=== PATIENT | male | born 1935 | race Caucasian/White ===

== ENCOUNTER 2017-04-02 16:46 | Inpatient (IN) ==
[2017-04-02 17:24] LABS: MANUAL DIFF NEEDED? NO
[2017-04-02 17:37] LABS: BASO% 0.6 % (0.0-0.8); EOS# 0.14 X1000 (0.0-0.7); EOS% 1.3 % (0.0-10.0); HEMATOCRIT 48.7 % (42.0-52.0); HEMOGLOBIN 16.5 g/dL (14.0-18.0); IMM GRAN# 0.02 X1000 (0.0-0.04); IMM GRAN% 0.2 % (0.0-0.5); LYMPH# 1.28 X1000 (1.2-3.4); LYMPH% 12.1 % (20.5-51.1); MCH 32.1 PG (27-31); MCHC 33.9 g/dL (33-37); MCV 94.7 FL (81-99); MONO% 7.6 % (1.7-9.3); MPV 11.4 FL (7.4-10.4); NEUT% 78.2 % (42.2-75.2); PLT 177 X1000 (130-400); RBC 5.14 XMIL (4.7-6.1)
[2017-04-02 17:52] LABS: ALBUMIN 4.1 g/dL (3.5-5.0); CALCIUM 9.5 mg/dL (8.8-10.2); POTASSIUM 4.1 mmol/L (3.5-5.1); TOTAL BILIRUBIN 0.72 mg/dL (0.20-1.00)
[2017-04-02 18:06] LABS: URINE MICRO REVIEW NEEDED? NO; URINE SOURCE CLEAN CATCH
[2017-04-02 18:11] LABS: BILIRUBIN URINE NEGATIVE (NEGATIVE); BLOOD URINE TRACE (NEGATIVE); COLOR STRAW; GLUCOSE URINE 500 mg/dL (NEGATIVE); LEUKOCYTES URINE TRACE (NEGATIVE); NITRITE URINE NEGATIVE (NEGATIVE); PH URINE 7.5; PROTEIN URINE 50 mg/dL (NEGATIVE); SP GRAVITY URINE 1.007; TURBIDITY URINE CLEAR (CLEAR); UR EPITHELIAL CELLS <10 /HPF (<10); URINE BACTERIA NEGATIVE /HPF; URINE CULTURE NEEDED? YES; URINE RBC <10 /HPF (<10); UROBILINOGEN URINE NORMAL (NORMAL)
[2017-04-02] MEDS ORDERED: ZOFRAN IV ONE (18:28)
[2017-04-02] MEDS ORDERED: ROCEPHIN 1 GM/NS 1 GM/50 ML IVPB IV ONE (18:29)
[2017-04-02] MEDS ORDERED: LOPRESSOR 10 MG in NS 50 ML IV ONE (18:30)
[2017-04-02] MEDS ORDERED: NS 1,000 ML IV ONE (18:30)
[2017-04-02] MEDS ORDERED: NICODERM PATCH TD ONE (18:49)
--- NOTE | 2017-04-02 18:51 | PROVIDER DOCUMENTATION ---
This chart was entered by Camille Seymour Scribe, acting as scribe for Will Landaverde MD. HPI-Abdominal Pain/GI Problem - General Chief Complaint: Nausea/Vomiting Stated Complaint: N/V Time Seen by Provider: 04/02/17 18:27 Source: family Allergies/Adverse Reactions: Patient Allergies Allergy/AdvReac Type Severity Reaction Status Date / Time Sulfa (Sulfonamide Allergy Intermediate RASH Verified 04/01/17 18:16 Antibiotics) Home Medications: Home Medication List Medication Instructions Recorded Confirmed Last Taken Type Aspirin 162 mg PO DAILY 11/26/13 04/02/17 04/02/17 History Carvedilol 3.125 mg PO BID 11/26/13 04/02/17 04/02/17 History Cyanocobalamin (Vitamin B-12) 500 mcg PO BID 11/26/13 04/02/17 04/02/17 History [Vitamin B-12] Glipizide 10 mg PO BID 11/26/13 04/02/17 04/02/17 History Tamsulosin HCl [Flomax] 0.4 mg PO DAILY 11/26/13 04/02/17 04/02/17 History Apixaban [Eliquis] 2.5 mg PO BID 04/01/17 04/02/17 04/02/17 History Atorvastatin Calcium 80 mg PO HS 04/01/17 04/02/17 04/02/17 History Calcium Carbonate [Calcium] 500 mg PO BID 04/01/17 04/02/17 04/02/17 History Cholecalciferol (Vitamin D3) 1,000 unit PO DAILY 04/01/17 04/02/17 04/02/17 History [Vitamin D3] Finasteride 5 mg PO DAILY 04/01/17 04/02/17 04/02/17 History Insulin Detemir [Levemir] 10 unit SQ 04/01/17 04/02/17 04/02/17 History Losartan Potassium 25 mg PO DAILY 04/01/17 04/02/17 04/02/17 History Omeprazole 20 mg PO BID 04/01/17 04/02/17 04/02/17 History - History of Present Illness-ABD Nature of Presenting Problems: 81 year old M presents to the Ed with a cc of nausea, vomiting, and diarrhea with an onset of 1400. Family states that pt was seen yesterday in the ED for a syncopal episode. PT left AMA after having labs and imaging and 1/2 a bag of fluids. Daughter called PCP today and was told that they did not have appointment for pt and if it got any worse to come to the ED. Abdominal Pain Onset Location: reports: generalized abdomen Pain Radiation: reports: no radiation Quality of Pain: reports: aching Severity in ED: reports: mild Onset/Duration: reports: this afternoon (1400) Timing: reports: still present Associated Symptoms: reports: diarrhea, nausea, vomiting Bruising or Bleeding Gums?: No Similar Symptoms Previously?: No Recently seen or treated by another doctor?: Yes Review of Systems - Adult - REVIEW OF SYSTEMS - ADULT Constitutional: denies: chills, fever Eyes: reports: no symptoms reported Ears, Nose, Mouth & Throat: reports: no symptoms reported Cardiovascular: denies: chest pain, palpitations Respiratory: denies: cough, shortness of breath Gastrointestinal: reports: diarrhea, nausea, vomiting Genitourinary: reports: no symptoms reported Musculoskeletal: reports: no symptoms reported Integumentary: reports: no symptoms reported Neurological: reports: no symptoms reported Psychiatric: reports: no symptoms reported Endocrine: reports: no symptoms reported Hematologic/Lymphatic: reports: no symptoms reported Allergic/Immunologic: reports: no symptoms reported All Other Systems: Reviewed and Negative Past History - Adult - PAST MEDICAL HISTORY-ADULT Review of Records: reports: Nursing Assessment Review, Medications Reviewed Major Childhood Illnesses: reports: denies history Cardiovascular: reports: arrhythmia, HTN, hyperlipidemia, pacemaker Genitourinary: reports: kidney stones Neurological: reports: dementia Endocrine/Immune: reports: Diabetes - PRIOR SURGERIES/PROCEDURES Surgical/Procedure History: reports: pacemaker, back/neck - IMMUNIZATION STATUS Childhood Immunizations: See Nurse Assessment Flu Vaccine: See Nurse Assessment - SOCIAL HISTORY Smoking: cigarettes Provider spent 3-5 mins advising pt. on dangers of tobacco.: Discussed manners to quit use, and f/u contacts for add'l counseling. Substance Use: none/never Alcohol Use Frequency: rarely Physical Exam-General - PHYSICAL EXAM-ADULT Initial Vital Signs Reviewed: Yes - CONSTITUTIONAL General Appearance: alert, no apparent distress - RESPIRATORY Respiratory: chest non-tender, lungs clear, normal breath sounds - CARDIOVASCULAR Cardiovascular: normal peripheral pulses, regular rate, rhythm, no edema - GASTROINTESTINAL (ABDOMEN) Abdominal Exam: normal bowel sounds, soft, tenderness (suprapubic) - MUSCULOSKELETAL Back Exam: normal inspection, no CVA tenderness, no vertebral tenderness Extremity: normal inspection - SKIN Integumentary: normal color, normal turgor, warm/dry - PSYCHIATRIC Psych/Mental Status: normal mood/affect, normal thought content, normal thought process, oriented x 3 Progress - PLAN OF CARE/RESULTS Progress/Plan/Lab Results: Vital Signs - 8 hr 04/02/17 16:56 Temperature 97.4 F L Pulse Rate 69 Respiratory Rate 18 Blood Pressure 191/110 O2 Sat by Pulse Oximetry 96 Laboratory Results - last 24 hr 04/02/17 04/02/17 04/02/17 16:58 16:58 17:15 WBC 10.56 RBC 5.14 Hgb 16.5 Hct 48.7 MCV 94.7 MCH 32.1 H MCHC 33.9 RDW Std Deviation 13.7 Plt Count 177 MPV 11.4 H Immature Gran % (Auto) 0.2 Neut % (Auto) 78.2 H Lymph % (Auto) 12.1 L [place] % (Auto) 7.6 Eos % (Auto) 1.3 Baso % (Auto) 0.6 Immature Gran # (Auto) 0.02 Neut # (Auto) 8.26 H Lymph # (Auto) 1.28 [place] # (Auto) 0.80 H Eos # (Auto) 0.14 Baso # (Auto) 0.06 Sodium 133 L Potassium 4.1 D Chloride 97 L Carbon Dioxide 20 L Anion Gap 16 BUN 22 Creatinine 1.3 H Estimated GFR/1.73 m2 53 BUN/Creatinine Ratio 17 Glucose 187 H Calculated Osmolality 275 Calcium 9.5 Total Bilirubin 0.72 AST 15 ALT 9 L Alkaline Phosphatase 200 H Total Protein 8.0 Albumin 4.1 Globulin 3.9 Albumin/Globulin Ratio 1.1 Urine Source CLEAN CATCH Urine Color STRAW Urine Turbidity CLEAR Urine pH 7.5 Ur Specific [place] 1.007 Urine Protein 50 A Ur Glucose (Stick) 500 A Ur Ketones (Stick) TRACE A Urine Blood TRACE A Urine Nitrite NEGATIVE Urine Bilirubin NEGATIVE Urobilinogen Dipstick NORMAL Urine Leukocytes TRACE A Urine WBC (Auto) 10-20 A Urine RBC (Auto) <10 U Epithel Cells (Auto) <10 Urine Bacteria (Auto) NEGATIVE Orders Category Date Time Status CBC WITH ELECTRONIC DIFF [HEME] Stat Lab 04/02/17 16:58 Completed CMP [COMPREHENSIVE METABOLIC PANEL] [CHEM] Stat Lab 04/02/17 16:58 Completed UA NIMS W/REFLEX CULT [URINALYSIS] Stat Lab 04/02/17 17:15 Completed URINE CULTURE [RM] Routine Lab 04/02/17 18:22 Received Result Diagrams: 04/02/17 16:58 04/02/17 16:58 Departure - Departure Date of Disposition Decision: 04/02/17 Time of Disposition Decision: 18:50 DIAGNOSIS: UTI (urinary tract infection) Qualifiers: Urinary tract infection type: site unspecified Hematuria presence: without hematuria Qualified Code(s): N39.0 - Urinary tract infection, site not specified Vomiting Qualifiers: Vomiting type: unspecified Vomiting Intractability: non-intractable Nausea presence: with nausea Qualified Code(s): R11.2 - Nausea with vomiting, unspecified Disposition: ADMITTED INPATIENT 09 Certified Medical Emergency: Emergent Condition: Fair - Critical Care Note This patient required my direct & personal management of CC.: No This chart was documented by the indicated scribe, (Camille Seymour Scribe) and accurately reflects the services I performed and decisions made by me, Will Landaverde MD, as attested by the provider's signature.
--- NOTE | 2017-04-02 19:18 | Diag Imaging Result Doc PS360 ---
EXAM: FLAT/UPRIGHT ABD/1 VIEW CHEST HISTORY: vomiting TECHNIQUE: Four views COMPARISON: 02/16/2014 FINDINGS: The lungs are well expanded. There is a left-sided pacemaker. No cardiomegaly. No pneumonia. No free air beneath the diaphragm. The gallbladder has been removed. No bowel obstruction. No organomegaly. There is a left lower pole renal stone. This was present on the prior exam. IMPRESSION: No acute abnormality. Electronically signed by Osiel Butts 04/02/2017 7:16 PM
[2017-04-02] MEDS ORDERED: ZOFRAN IV PRN (20:43)
[2017-04-02] MEDS ORDERED: MORPHINE IV PRN (20:43)
[2017-04-02] MEDS: ELIQUIS PO SCH (22:48)
[2017-04-02] MEDS: COREG PO SCH (22:48)
[2017-04-02] MEDS: PRILOSEC PO SCH (22:49)
[2017-04-02] MEDS: VITAMIN B-12 PO SCH (22:49)
[2017-04-03] MEDS ORDERED: APRESOLINE IV PRN (00:10)
[2017-04-03] MEDS ORDERED: MORPHINE IV PRN (01:23)
--- NOTE | 2017-04-03 05:13 | EKG Report ---
Test Performed on : 04/03/2017 03:08:44 AM Test Reason : Hx of A-Fib, N/V, UTI Blood Pressure : / mmHG Vent. Rate : 071 BPM Atrial Rate : 045 BPM P-R Int : 000 ms QRS Dur : 126 ms QT Int : 494 ms P-R-T Axes : 000 -85 086 degrees QTc Int : 536 ms Wide QRS rhythm. Left axis deviation Right bundle branch block Cannot rule out Anterior infarct , age undetermined T wave abnormality, consider lateral ischemia Abnormal ECG When compared with ECG of 01-APR-2017 17:04, (Unconfirmed) Wide QRS rhythm. has replaced Electronic ventricular pacemaker Confirmed by Oliverio RENTERIA, MDayron Zepeda ([id number]) on 04/07/2017 6:01:28 AM
--- NOTE | 2017-04-03 06:04 | Diag Imaging Result Doc PS360 ---
EXAM: HEAD W/O CONTRAST HISTORY: Syncope TECHNIQUE: CT brain without. Dose reduction protocol. COMPARISON: None. FINDINGS: No parenchymal hemorrhage. No epidural or subdural hematoma. No subarachnoid hemorrhage. No mass identified on this noncontrasted exam. There is atrophy with chronic microvascular ischemic changes. Moderate dilatation of the ventricular system. Tiny old lacunar in the left cerebellum. No sinus opacification. 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 3.A preliminary report was given at 1:46 AM. Electronically signed by Osiel Butts 04/03/2017 6:02 AM
--- NOTE | 2017-04-03 06:25 | HISTORY AND PHYSICAL ---
PRIMARY CARE PROVIDER: Dr. Rosado CHIEF COMPLAINT: Nausea, vomiting and urinary frequency. HISTORY OF PRESENT ILLNESS: Mr. Camargo is an 81-year-old, male who presented to the ER tonight with complaints of nausea, vomiting and urinary frequency. He was seen in the ER yesterday for a syncopal episode. His family reports that he was sitting at the table, became lightheaded and passed out while sitting up. They stated that he was very hard to arouse during this time. Upon his arrival to the ER, ED provider did note that the patient denied any medicine changes, headache or visual changes. He also denied any chest pain, or shortness of breath. He did have an EKG performed that showed a ventricular paced rhythm. Though due to his syncopal episode, the patient did have his pacemaker defibrillator interrogated in the ER last night for which it was found to be functioning as programmed with 100% pacing and normal pressures per the ER documentation. The patient did receive a half a bag of normal saline though did decline any further IV hydration and ended up choosing to leave the ER. [facility] the [facility] began complaining of nausea, vomiting and some urinary frequency at approximately 14:00. His family stated that since this time and up until the time of my examination, he vomited approximately 8 or 9 times. They denied him having any diarrhea. The patient denied this as well. He denies any hematemesis, hematochezia or melena. He also denies any fever, body aches or chills. Other than urinary frequency, he denies any other urinary symptoms. Due to his reports of nausea and vomiting an abdominal x-ray was performed that showed no acute abnormality. They also did obtain a urinalysis which did show some trace leukocytes and white blood cells. We also did perform a head CT secondary to his previous reports of syncope which showed no acute hemorrhage or definite acute infarct. The patient also denies any previous known history of stroke. He also denies any headache, chest pain, shortness of breath, abdominal pain, dysuria, pain, numbness, tingling or swelling in the extremities. REVIEW OF SYSTEMS: A 12 point review of systems was conducted with the patient. All were negative except for pertinent positives as mentioned above in HPI. PAST MEDICAL HISTORY: 1. Hypertension. 2. Hyperlipidemia. 3. Diabetes mellitus. 4. Congestive heart failure. 5. Benign neoplasm of the prostate. 6. Kidney stones. 7. BPH with obstruction. 8. Atrial fibrillation. 9. Pacemaker defibrillator placement. 10. Neuropathy. 11. Gout. PAST SURGICAL HISTORY: 1. Lumbar spine surgery. 2. Pacemaker defibrillator placement. 3. Cholecystectomy. 4. Prostatectomy. SOCIAL HISTORY: The patient is a current smoker. He has smoked 1 pack per day and has so for greater than 60 years. He reports occasional alcohol use and has no known history of illicit drug use. The patient currently does live alone though does have family that lives here in town that can assist him when needed. FAMILY HISTORY: Positive for high blood pressure, heart disease, diabetes, and stroke. ALLERGIES: Patient reports allergies to sulfa. HOME MEDICATIONS: 1. Eliquis 2.5 mg p.o. b.i.d. 2. Aspirin 81 mg p.o. daily. 3. Atorvastatin 80 mg p.o. at bedtime. 4. Calcium carbonate 500 mg p.o. b.i.d. 5. Coreg 3.125 mg p.o. b.i.d. 6. Vitamin D3 1000 units p.o. daily. 7. Vitamin B12 500 mcg p.o. b.i.d. 8. Finasteride 5 mg p.o. daily. 9. Glipizide 10 mg p.o. b.i.d. 10. Levemir 10 units subcutaneous at bedtime. 11. Losartan 25 mg p.o. daily. 12. Omeprazole 20 mg p.o. b.i.d. 13. Flomax 0.4 mg p.o. daily. DIAGNOSTIC DATA/LABORATORY RESULTS: White blood cell count is 10.5, hemoglobin 16.5, hematocrit 48.7, platelet count is 177,000. Sodium 133, potassium 4.1, chloride 97, bicarb 20, BUN is 22, creatinine 1.3 with a GFR of 53. Glucose 187, calcium 9.5, total bilirubin is 0.72. AST 15, ALT 9, alkaline phosphatase is 200. CK 62. Troponin is less than 0.01. Urinalysis was obtained via clean catch, and was positive for protein, glucose and trace ketones, blood leukocytes and 10-20 white blood cells. It was negative for bacteria or nitrites. Abdomen flat and upright with a 1 view chest showed no acute abnormalities per radiology. CT of the head noncontrast showed diffuse atrophy with nonspecific white matter changes. No acute hemorrhage or definite acute infarct seen. Enlargement of the lateral ventricles is likely due to central atrophy. No masses are seen and there is no mass effect. There is an old lacunar infarct in the left cerebellum noted. This was per radiology as well. PHYSICAL EXAMINATION: VITAL SIGNS: Temperature 97.6 degrees, heart rate 74, respirations 18, blood pressure is 186/116, and oxygen saturation 100% room air. The patient does show to have a paced rhythm per bedside on telemetry. GENERAL: Mr. Reza is an 81-year-old male who is resting comfortably on the ER stretcher. He was in no acute distress. He was awake, alert and able to answer all questions appropriately. HEENT: Head is atraumatic, normocephalic. Pupils are equal, round, reactive to light. Were 2 mm bilaterally. Oral mucosa is moist. Oropharynx was clear. NECK: Supple. Trachea midline. No JVD noted. No carotid bruits noted upon auscultation bilaterally. CARDIOVASCULAR: Patient has normal S1, S2. No murmurs, gallops, rubs appreciated with a regular rate and rhythm. PULMONARY: Patient has symmetrical chest expansion bilaterally. Lung sounds are clear to auscultation in bilateral full sheikh. ABDOMEN: Soft, nontender, nondistended. Bowel sounds were present in all 4 quadrants, were normoactive. The patient has no CVA tenderness noted upon palpation. EXTREMITIES: No cyanosis, clubbing, or edema noted. Pulse motor and sensory were intact in all extremities. Pedal pulses were 2+ bilaterally. Capillary refill was less than 3. INTEGUMENTARY: The patient's skin is pink, warm, dry, and intact. No lesions or sores noted except for the patient does have what appears to be maybe some excoriation noted to the dorsal surface of his bilateral toes. There is some slight erythema noted though no drainage present. Family at bedside states that this has been present for quite some time. NEUROLOGICAL: Patient is alert and oriented x4. Cranial nerves 2-12 are grossly intact. ASSESSMENT AND PLAN: 1. Urinary tract infection. For this, we have placed a order for a urine culture. The patient will be given Rocephin 1 g IV q.24 hours. We will await culture results. 2. Syncope. As previously mentioned, the patient was evaluated for this in the ED previously. EKG showed a paced rhythm. He also did have his pacemaker interrogated which showed no complications. Though we did order the patient to have a CT of the head, noncontrast which was negative for any acute abnormality. We have also placed the order for the patient to have a carotid ultrasound. He has had a previous echocardiogram performed on 03/2017 which showed an estimated ejection fraction of 55%. The patient reports he has not had any further syncopal episodes. We will place him on telemetry and monitor him closely, and await carotid ultrasound results. We also placed an order for another EKG and are awaiting those results at this time. 3. Nausea and vomiting. We will treat this with Zofran p.r.n. as needed. 4. Hypertension. We will continue the patient's blood pressure medicines of Cozaar and Coreg. We have also placed an order for p.r.n. hydralazine for systolic blood pressure greater than 180/100. 5. Probable chronic kidney disease stage 3. On looking back to previous labs to 2013, the patient has had an elevated creatinine as well as decreased GFR with what appears to be a baseline around 42. At this time, this appears to be stable and we will closely monitor this and renally dose medications as needed and avoid nephrotoxic medicines. We have also placed an order for a bladder scan. 6. Congestive heart failure. We will continue the patient's Coreg. 7. History of atrial fibrillation. We will continue the patient's Eliquis. He is currently in a paced rhythm with the heart rate in the 70s. 8. Hyperlipidemia. We will continue his atorvastatin. 9. Deep vein thrombosis prophylaxis. We provided with the patient's previously prescribed Eliquis. 10. Diabetes mellitus. We will continue his Levemir and add on a lispro sliding scale per low- dose protocol for glucose control. 11. Nicotine dependence. We have counseled the patient on his need for smoking cessation. We will continue to do so throughout his admission upon discharge. We have placed orders for the patient to receive a nicotine patch. 12. The patient was placed on the medical floor with telemetry. He will have vital signs q.6 hours. He will be on a diabetic diet. We will repeat a CBC and BMP in the morning. Further orders and recommendations pending hospital course, diagnostic studies, and physician evaluation. Dictated by CONSTANCE Aaron for Carlitos Noe MD cc: Carlitos Noe MD pt examined, discussed above plan with constance NORRIS
[2017-04-03] MEDS: HUMALOG SUBQ SCH ×4 (06:37→22:23)
[2017-04-03] MEDS ORDERED: COZAAR PO SCH (09:00)
[2017-04-03] MEDS: ASPIRIN PO SCH (11:34)
[2017-04-03] MEDS: PRILOSEC PO SCH ×2 (11:34→22:24)
[2017-04-03] MEDS: PROSCAR PO SCH (11:35)
[2017-04-03] MEDS: FLOMAX PO SCH (11:35)
[2017-04-03] MEDS: COREG PO SCH ×2 (11:37→22:24)
[2017-04-03] MEDS: OSCAL 500 PO SCH ×2 (11:37→22:25)
[2017-04-03] MEDS: ELIQUIS PO SCH ×2 (11:38→22:24)
[2017-04-03] MEDS: VITAMIN B-12 PO SCH ×2 (11:38→22:24)
[2017-04-03] MEDS: VITAMIN D PO SCH (11:39)
--- NOTE | 2017-04-03 14:59 | PROGRESS NOTE ---
DATE: 04/03/2017 SUBJECTIVE: Today Mr. Camargo referred to be doing a lot better. He got admitted yesterday because of intractable nausea and vomiting and some supposed diarrhea. Of note, the patient is also said to have had a syncopal attack the day before. Of note, patient has a significant history of atrial fibrillation, pacemaker, diabetes, hypertension and BPH. OBJECTIVE: Vital signs: Blood pressure is 165/92, of note on presentation the patient's blood pressure was 191/110. Pulse is 70, respiration is 18, temperature 98 degrees. General: Mr. Camargo is an 81-year-old very functional male. He is in bed, not in any distress. HEENT: Mucosa is pink and moist. Anicteric. Acyanotic. Neck: Supple. Chest: Good air entry bilateral. There is a pacemaker generator on the left anterior chest wall. Cardiovascular: Regular rate and rhythm. Abdomen: Soft, nontender. Extremities: No pedal edema. Distal pulses are remarkably reduced bilaterally. LABORATORY DATA: No CBC. No chemistry. Troponins have been repeated 3 times and negative. ASSESSMENT: 1. Suspect a urine tract infection. 2. History of syncope. 3. Uncontrolled hypertension. 4. History of atrial fibrillation. 5. Pacemaker. 6. Active tobacco use. 7. Left carotid artery stenosis of 60-79%. PLAN: 1. In general, we are going to continue with the current antibiotics. Patient had an echocardiogram which showed an EF of 55, but normal wall thickness and no other abnormality was dictated. We will follow up with a urine culture. If the urine culture comes back with the pathogen, we will switch the antibiotics. We will also get Cardiology to evaluate him for the syncope. Probably the pacemaker needs to be interrogated. 2. Patient is very adamant that he wants to go home tomorrow. Either we discharge him or he will go against medical advice because he has a meeting with all his kids tomorrow. 3. I discussed the plan with him and the daughter and a granddaughter where at the bedside with him. 4. Left carotid artery stenosis. Patient does not seem to have any symptoms from this. I have discussed this with him and have recommended that he follow up with one of the vascular surgeons on outpatient basis. cc: Ramiro Garcia MD
--- NOTE | 2017-04-03 15:07 | CONSULTATION ---
DATE OF CONSULTATION: 04/03/2017 INDICATION: Syncope. HISTORY OF PRESENT ILLNESS: Mr. Camargo is an 81-year-old white male with a history of coronary disease and atrial fibrillation status post AV [place] ablation with subsequent MANAGER HEMATOLOGY implantation. He normally [facility] [place] with last visit in February 2017. Mr. Camargo has presented a 2nd time for syncope. Initially he presented this past Thursday with subsequently leaving AMA. He presented again on evening with complaints of syncope. These episodes seem to occur while seated and are preceded by a few seconds of lightheadedness. He then believes he passes out for a minute or so. He does not have any associated symptoms at that time. By chart review, he had his device interrogated on Thursday and it showed no evidence of any malfunctions or significant arrhythmias. In addition, he had an echocardiogram on March 13 demonstrating a normal ejection fraction. No significant valvular abnormalities and essentially no obstructive type lesions with normal chamber sizes. He denies any infectious type symptoms, such as fevers, coughs or colds. There was some report of nausea, vomiting and urinary frequency, but he does not endorse that to me. He has not had any episodes of chest pain. PAST MEDICAL HISTORY: 1. Significant for coronary artery disease. Last cardiac catheterization in December 2010 showing a normal left main. LAD had a 50-60% mid lesion, circumflex 50-60% proximal with a 70% mid lesion at the bifurcation. RCA had a 35% proximal with a 50-60% mid and a 60-70% distal lesion in the PDA branch. This was treated with medical therapy. 2. Previous dilated cardiomyopathy, but subsequently his last EF was normalized at 55% on March 13. 3. History of atrial fibrillation, status post AV [place] ablation and subsequent MANAGER HEMATOLOGY-D implantation. Most recent generator change was 06/03/2016 in [facility]. 4. Hypertension. 5. Hyperlipidemia. 6. Diabetes. 7. Tobacco abuse. 8. History of DVT. 9. Chronic anticoagulation therapy for DVTs as well as atrial fibrillation. SOCIAL HISTORY: He continues to smoke 1 pack per day or so and has done so for 60 years or more. Occasional alcohol use. No known illicit drug use. Lives alone, although has family in the area. FAMILY HISTORY: Significant for hypertension, heart disease, although no early heart disease in first-degree relatives, diabetes and strokes. REVIEW OF SYSTEMS: A 10 system review of systems is negative except for those things mentioned in HPI. PHYSICAL EXAMINATION: Vital signs: The patient is afebrile. His heart rates seem to be predominantly in the 60s to 70s. His EKG shows a rate of 71 and is likely his MANAGER HEMATOLOGY-D has a lower rate limit set of 70. His systolic blood pressure was quite elevated when he presented at 190 and persisted to be elevated up until around midnight last night. Subsequent checks since then have been in the 110s to 140s. I do not see any listing of any orthostatics being performed. Generally: He is in no acute distress. HEENT: Oropharynx is moist. Poor dentition. Eye examination is pink conjunctivae. White sclerae. Neck: Examination shows no obvious thyromegaly or thyroid tenderness. Cardiovascular: He is in a regular rate and rhythm. He has no obvious murmurs. No S3. He has no lower extremity edema. Chest: Exam sounds relatively clear, although he has a poor inspiratory effort. Abdomen: Soft, nontender, nondistended. He has no obvious organomegaly. Skin: Warm and dry throughout without any rashes. Neurological: Moving all extremities well. Cranial nerves 2 through 12 are intact without any sensation deficits. Psychiatric: Alert and oriented, pleasant. Normal mood and affect. PERTINENT DATA: His EKG shows a baseline atrial rhythm of atrial fibrillation, ventricular rate 71 beats per minute and appears to be ventricularly paced consistent with a MANAGER HEMATOLOGY. CT of the head shows no hemorrhage, chronic ischemic changes and atrophy with cold left lacunar infarct. Abdominal x-ray demonstrates no acute abnormality. That was a flat upright and chest x-ray. Lab data shows a white count of 10.6, hematocrit 48.7, platelet count 177,000. Sodium 133, potassium 4.1, BUN 22, creatinine 1.3. Cardiac enzymes are negative times multiple sets. His albumin is 4.1. His urinalysis was reviewed. ASSESSMENT: Syncope. PLAN: The patient does not seem to have a cardiac etiology to his syncope. His echocardiogram demonstrates a normal ejection fraction with no obstructive lesions. His device interrogation does not demonstrate any sort of captured arrhythmia or significant malfunction that was done just this past Thursday after an episode of syncope. An ischemic etiology also seems to be ruled out as syncope due to ischemia would result in some sort of arrhythmias, either asystole or tachyarrhythmia such as VT or VF. None of these were identified on the device evaluation. The patient could certainly have a vasovagal or some other etiology resulting in a transient drop in his blood pressure. I would recommend checking orthostatics. He has a carotid ultrasound which is currently pending. At this point, I have no further recommendations. He is currently on low- dose Eliquis . I would be hesitant to increase the dose based on his age, weight and kidney function since he is currently having episodes of syncope and seems to be somewhat of a fall risk presently. I would for now continue on the current dose unless falling becomes an evident issue here in the hospital. cc: Yinka Wesley MD
--- NOTE | 2017-04-03 18:22 | Carotid Study ---
DATE: 04/03/2017 PROCEDURE: Carotid duplex imaging. REFERRING PHYSICIAN: Dr. Noe INTERPRETING PHYSICIAN: Dr. Marquez TECH: Heydi INDICATIONS: TIA. OBSERVED DATA RIGHT LEFT Brachial Blood Pressure Carotid Pulse Bruits: Carotid/Sub DIAGRAM OF ULTRASOUND IMAGING R L RIGHT INT EXT INT EXT LEFT Abraham (cm/s) Abraham (cm/s) Subclavian 74/0 Subclavian 51/0 CCA Proximal 27/10 CCA Proximal 47/16 CCA Distal 35/14 CCA Distal 59/23 Bulb 50/20 Bulb 196/59 ICA Proximal 34/7 ICA Proximal 204/57 ICA Mid 44/9 ICA Mid 64/13 ICA Distal 37/7 ICA Distal 52/21 ECA 221/32 ECA 182/32 Vertebral 19/0 Vertebral 70/20 ICA/CCA Ratio 1.3 ICA/CCA Ratio 3.5 % Stenosis 0 to 39 % Stenosis 60 to 79 FINDINGS: There is a mild degree of plaque in the proximal right internal carotid artery. In the left carotid bulb and proximal internal carotid artery, there is more extensive plaque with significant stenosis. This also involves the external carotid artery on the left. There is antegrade vertebral flow bilaterally. PHYSICIAN INTERPRETATION: There is severe plaque at the takeoff of the internal carotid artery on the left. This is approaching hemodynamic significance. The patient should be considered for vascular surgery evaluation in the near future. cc: MD Carlitos Doherty MD
[2017-04-03] MEDS ORDERED: LEVEMIR SUBQ SCH (21:00)
[2017-04-03] MEDS ORDERED: LIPITOR PO SCH (21:00)
[2017-04-03] MEDS ORDERED: NICODERM PATCH TD SCH (21:30)
[2017-04-03] MEDS ORDERED: ROCEPHIN 1 GM/NS 1 GM/50 ML IVPB IV SCH (21:30)
[2017-04-04 05:59] LABS: HEMATOCRIT 45.7 % (42.0-52.0); HEMOGLOBIN 15.4 g/dL (14.0-18.0); MCH 32.4 PG (27-31); MCHC 33.7 g/dL (33-37); MPV 11.7 FL (7.4-10.4); RBC 4.76 XMIL (4.7-6.1)
[2017-04-04 06:22] LABS: CALCIUM 9.5 mg/dL (8.8-10.2); POTASSIUM 4.5 mmol/L (3.5-5.1)
[2017-04-04] MEDS: HUMALOG SUBQ SCH ×2 (06:51→11:51)
[2017-04-04 09:02] VITALS: BP 108/56
[2017-04-04] MEDS: VITAMIN D PO SCH (10:06)
[2017-04-04] MEDS: FLOMAX PO SCH (10:06)
[2017-04-04] MEDS: OSCAL 500 PO SCH (10:06)
[2017-04-04] MEDS: ASPIRIN PO SCH (10:06)
[2017-04-04] MEDS: PRILOSEC PO SCH (10:06)
[2017-04-04] MEDS: VITAMIN B-12 PO SCH (10:06)
[2017-04-04] MEDS: PROSCAR PO SCH (10:07)
[2017-04-04] MEDS: COREG PO SCH (10:07)
[2017-04-04] MEDS: ELIQUIS PO SCH (10:07)
[2017-04-04] MEDS ORDERED: KEFLEX PO SCH (21:00)
--- NOTE | 2017-04-05 06:01 | DISCHARGE SUMMARY ---
ADMISSION DATE: 04/04/2017 DISCHARGE DATE: 04/04/2017 DISPOSITION: Home. FOLLOWUP: 1. Dr. Rosado. 2. Dr. Wesley. CONSULTATION DURING THIS ADMISSION: Cardiology was consulted. Patient was seen by Dr. Wesley. The cardiac device was also interrogated. INVASIVE PROCEDURES DONE DURING THIS ADMISSION: None. IMAGING STUDIES OF SIGNIFICANCE: A CT scan of the head was done which was unremarkable except for chronic atrophy. Carotid Doppler studies were also done which show remarkable stenosis in the left ICA of 60-79%. ADMISSION DIAGNOSES: 1. Urinary tract infection. 2. Syncope. 3. Nausea and vomiting. 4. Hypertension. 5. History of atrial fibrillation. DIAGNOSES AT THE TIME OF DISCHARGE: 1. Gram positive cocci urinary tract infection. 2. History of syncope, possibly due to the underlying urinary tract infection. 3. Hypertension. 4. History of atrial fibrillation. 5. Pacemaker. 6. Active tobacco use. 7. 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 8. Chronic kidney disease stage IIIB. DISCHARGE MEDICATIONS: 1. Tamsulosin 0.4 mg daily. 2. Cyanocobalamin 500 mcg b.i.d. 3. Aspirin 162 daily. 4. Carvedilol 6.25 b.i.d. 5. Glipizide 10 mg b.i.d. 6. Atorvastatin 80 mg at bedtime. 7. Apixaban 2.5 b.i.d. 8. Omeprazole 20 mg b.i.d. 9. Finasteride 5 mg daily. 10. Cephalexin 500 b.i.d. Medication that has been withheld: Losartan 25 mg due to a slight increase in creatinine. SPECIAL RECOMMENDATIONS: The patient is supposed to follow up with his PCP within 2-3 days to check on the final ID and sensitivity on the urine culture. He is also supposed to follow up with nephrology for the CKD. PRESENTING COMPLAINT: Nausea and vomiting, urinary frequency. HISTORY OF PRESENTING COMPLAINT: Mr. Camargo is an 81-year-old, male who presented to the emergency department because of nausea, vomiting, and urinary frequency. Also, there is a history that he had syncopized about the day before coming to the emergency department. He was evaluated in emergency room. The plan was to admit him and work him up. HOSPITAL COURSE: The patient did well. Was admitted. We gently hydrated him. Blood pressure was managed and cardiology was consulted. Patient had interrogation of his cardiac device which was unremarkable. Troponins and EKGs were also completely unremarkable today. Patient's culture is growing gram-positive cocci. However, he was very adamant that if we do not discharge him, he would go AMA. Therefore, I decided to discharge him, put him on cephalexin, and let him follow up with his primary care doctor to review the culture results. Patient will also follow up with Dr. Wesley from the cardiology standpoint. Time spent for discharge is 38 minutes. cc: Ramiro Garcia MD
== END 2017-04-04 13:55 | disposition home or self-care (01) ==
LOC: ED 16:46 → 4N 21:12 → SUATTDRO 21:12 → 4N 22:04
PROVIDERS: ATTEND Internal Medicine